=== PATIENT | male | born 1965 | race Hispanic/Latino ===

== ENCOUNTER 2017-10-17 00:39 | Emergency (ER) | payer SELFPAY | END 2017-10-17 01:34 | disposition home or self-care (01) | LOC: ERS 00:39 | DX: H10.9 Unspecified conjunctivitis (principal); E78.5 Hyperlipidemia, unspecified; F17.210 Nicotine dependence, cigarettes, uncomplicated | CPT/HCPCS: 99282 ==

== ENCOUNTER 2022-01-06 13:33 | Emergency (ER) | payer SELFPAY | END 2022-01-06 14:14 | disposition home or self-care (01) | LOC: ERS 13:33 | DX: J06.9 Acute upper respiratory infection, unspecified (principal); E78.5 Hyperlipidemia, unspecified; F17.210 Nicotine dependence, cigarettes, uncomplicated; Z20.822 Contact with and (suspected) exposure to COVID-19 | CPT/HCPCS: 99283; U0003; U0005 ==